=== PATIENT | female | born 1975 | race Caucasian/White ===

== ENCOUNTER 2023-11-17 15:08 | Inpatient (IN) | payer OTHER ==
[~2023-11-17] VITALS: Ht 162.6 cm; Wt 76.2 kg
[~2023-11-17 15:08] MED LIST: ASPIRIN EC81 MG PO; CRESTOR20 MG PO; ESCITALOPRAM OX10 MG PO; FIORICET 50-301 EACH PO; HYDROCHLOROTHIA25 MG PO; LEVOTHYROXINE88 MCG PO; LIDOCAINE1 EAC1 TD; NITROSTAT0.4 MG SL; PREDNISONE20 MG PO; SYNTHROID100 MCG PO; TYLENOL325 MG PO; Z.0.ALPRAZOLAM1 MG PO; Z.0.ATENOLOL25 MG PO; Z.0.METHIMAZOLE10 MG PO
[2023-11-17] MEDS ORDERED: SODIUM CHLORIDE FLUSH 10 ML SYR IV PRN (15:15)
[2023-11-17] MEDS ORDERED: KETOROLAC TROMETHAMINE 30 MG/ML VIAL IV STA (15:21)
[2023-11-17] MEDS ORDERED: FAMOTIDINE 20 MG/2 ML VIAL IV STA (15:31)
[2023-11-17 15:40] LABS: BASOPHILS # (AUTO) 0.1 (0.0-0.1); BASOPHILS % 0.7 % (0.0-1.0); EOSINOPHILS # (AUTO) 0.6 (0.0-0.4); EOSINOPHILS % 5.5 % (0.0-6.0); HEMATOCRIT 41.9 % (34.2-44.1); HEMOGLOBIN 13.8 g/dL (12.0-16.0); LYMPHOCYTES # (AUTO) 3.6 (1.0-3.2); LYMPHOCYTES % 34.4 % (18.0-39.1); MEAN CORPUSCULAR HEMOGLOBIN 32.2 pg (28-32); MEAN CORPUSCULAR HGB CONC 32.9 g/dL (31-35); MEAN CORPUSCULAR VOLUME 97.7 fL (81-99); MONOCYTES % 9.7 % (4.4-11.3); NEUTROPHILS # (AUTO) 5.2 (2.1-6.9); NEUTROPHILS % 49.5 % (38.7-80.0); PLATELET COUNT 279 x10e3/uL (140-360); RED BLOOD COUNT 4.29 x10e6/uL (3.6-5.1); RED CELL DISTRIBUTION WIDTH 13.2 % (11.7-14.4); WHITE BLOOD COUNT 10.44 x10e3/uL (4.8-10.8)
[2023-11-17 15:57] LABS: ALBUMIN 4.1 g/dL (3.5-5.0); ALBUMIN/GLOBULIN RATIO 1.1 (0.8-2.0); ANION GAP 13.7 mmol/L (8-16); BILIRUBIN,TOTAL 0.2 mg/dL (0.2-1.2); CALCIUM 9.3 mg/dL (8.4-10.2); CREATININE, SERUM 0.88 mg/dL (0.57-1.11); POTASSIUM 3.7 mmol/L (3.5-5.1); TOTAL PROTEIN 7.7 g/dL (6.5-8.1)
[2023-11-17 16:03] LABS: TROPONIN I 0.049 ng/mL (0-0.300)
[2023-11-17] MEDS ORDERED: ASPIRIN 81 MG CHEW TAB PO ONE ×2 (18:15→18:30)
[2023-11-17] MEDS ORDERED: SODIUM CHLORIDE FLUSH 10 ML SYR INJ PRN (18:30)
[2023-11-18 02:22] LABS: TROPONIN I 0.024 ng/mL (0-0.300)
[2023-11-18 05:50] LABS: BASOPHILS # (AUTO) 0.1 (0.0-0.1); BASOPHILS % 0.6 % (0.0-1.0); EOSINOPHILS # (AUTO) 0.6 (0.0-0.4); EOSINOPHILS % 6.3 % (0.0-6.0); HEMOGLOBIN 12.2 g/dL (12.0-16.0); LYMPHOCYTES # (AUTO) 3.6 (1.0-3.2); LYMPHOCYTES % 37.5 % (18.0-39.1); MEAN CORPUSCULAR HEMOGLOBIN 31.9 pg (28-32); MEAN CORPUSCULAR VOLUME 96.6 fL (81-99); MONOCYTES # (AUTO) 0.9 (0.2-0.8); MONOCYTES % 9.4 % (4.4-11.3); NEUTROPHILS # (AUTO) 4.4 (2.1-6.9); PLATELET COUNT 248 x10e3/uL (140-360); RED BLOOD COUNT 3.83 x10e6/uL (3.6-5.1); RED CELL DISTRIBUTION WIDTH 13.2 % (11.7-14.4); WHITE BLOOD COUNT 9.49 x10e3/uL (4.8-10.8)
[2023-11-18] MEDS: ASPIRIN 325 MG TAB EC PO SCH (08:53)
[2023-11-18 11:53] LABS: ALBUMIN 3.5 g/dL (3.5-5.0); ALBUMIN/GLOBULIN RATIO 1.1 (0.8-2.0); ANION GAP 10.5 mmol/L (8-16); BILIRUBIN,TOTAL 0.2 mg/dL (0.2-1.2); CALCIUM 8.9 mg/dL (8.4-10.2); CREATININE, SERUM 0.75 mg/dL (0.57-1.11); POTASSIUM 3.5 mmol/L (3.5-5.1); TOTAL PROTEIN 6.7 g/dL (6.5-8.1)
[2023-11-18 12:00] LABS: TROPONIN I 0.038 ng/mL (0-0.300)
[2023-11-18 15:47] VITALS: BP 125/65; PULSE 64; RESP 18; TEMP 97.6; O2SAT 98
[2023-11-18 15:59] VITALS: BP 125/65; PULSE 64; RESP 18; TEMP 97.6; O2SAT 98
[2023-11-18] MEDS ORDERED: NITROGLYCERIN 2% OINT 1 GM PKT TOP ONE (16:15)
[2023-11-18] MEDS: ONDANSETRON HCL INJ 2MG/ML 2ML 2 MG/ML VIAL IV PRN (16:39)
[2023-11-18] MEDS: SODIUM CHLORIDE 0.9% 1000ML 1,000 ML IV SCH (16:39)
[2023-11-18] MEDS: Morphine 4mg INJECTION 4 MG/ML INJ IV PRN ×2 (16:40→21:11)
[2023-11-18] MEDS ORDERED: melatonin PO (16:59)
[2023-11-18] MEDS ORDERED: ADVIL200 MG PO (16:59)
[2023-11-18] MEDS ORDERED: XYZAL5 MG PO (16:59)
[2023-11-18] MEDS ORDERED: [UNRECOGNIZED DRUG - OTHER] PO (16:59)
[2023-11-18] MEDS ORDERED: ACETAMINOPHEN325 M1 PO (16:59)
[2023-11-18] MEDS ORDERED: INFLUENZA VIRUS VAC SPLIT INJ 0.5 ML SYR IM SCH (17:00)
[2023-11-18 17:05] VITALS: BP 125/65; PULSE 64; RESP 18; TEMP 97.6; O2SAT 98
[2023-11-18 20:00] VITALS: BP 125/65; PULSE 64; RESP 18; TEMP 97.6; O2SAT 98
[2023-11-18 21:10] VITALS: BP 107/67; PULSE 65; RESP 18; TEMP 97.9; O2SAT 99
[2023-11-19] VITALS (18 sets, daily range): BP systolic 91–151; BP diastolic 50–101; PULSE 63–87; RESP 11–18; TEMP 97.5–98.3; O2SAT 96–100
[2023-11-19] MEDS ORDERED: ACETAMINOPHEN 325 MG TAB PO PRN
[2023-11-19] MEDS: Morphine 4mg INJECTION 4 MG/ML INJ IV PRN ×5 (01:00→20:28)
[2023-11-19 06:15] LABS: BASOPHILS % 0.3 % (0.0-1.0); EOSINOPHILS # (AUTO) 0.5 (0.0-0.4); EOSINOPHILS % 5.5 % (0.0-6.0); HEMATOCRIT 39.1 % (34.2-44.1); HEMOGLOBIN 12.8 g/dL (12.0-16.0); LYMPHOCYTES # (AUTO) 3.3 (1.0-3.2); LYMPHOCYTES % 33.8 % (18.0-39.1); MEAN CORPUSCULAR HEMOGLOBIN 31.4 pg (28-32); MEAN CORPUSCULAR HGB CONC 32.7 g/dL (31-35); MEAN CORPUSCULAR VOLUME 96.1 fL (81-99); MONOCYTES % 10.6 % (4.4-11.3); NEUTROPHILS # (AUTO) 4.8 (2.1-6.9); NEUTROPHILS % 49.5 % (38.7-80.0); PLATELET COUNT 265 x10e3/uL (140-360); RED BLOOD COUNT 4.07 x10e6/uL (3.6-5.1); WHITE BLOOD COUNT 9.72 x10e3/uL (4.8-10.8)
[2023-11-19 06:44] LABS: ALBUMIN 3.6 g/dL (3.5-5.0); ALBUMIN/GLOBULIN RATIO 1.1 (0.8-2.0); ANION GAP 11.5 mmol/L (8-16); BILIRUBIN,TOTAL 0.2 mg/dL (0.2-1.2); CALCIUM 8.5 mg/dL (8.4-10.2); CREATININE, SERUM 0.78 mg/dL (0.57-1.11); POTASSIUM 3.5 mmol/L (3.5-5.1); TOTAL PROTEIN 6.9 g/dL (6.5-8.1)
[2023-11-19 07:09] LABS: TROPONIN I 0.011 ng/mL (0-0.300)
[2023-11-19] MEDS: ASPIRIN 325 MG TAB EC PO SCH (08:17)
[2023-11-19] MEDS: SODIUM CHLORIDE 0.9% 1000ML 1,000 ML IV SCH (08:19)
[2023-11-19] MEDS ORDERED: HEPARIN SOD (PORCINE) 1000 UNIT/ML 30ML ONE (11:40)
[2023-11-19] MEDS ORDERED: LIDOCAINE HCL 2% LOCAL 20 ML VIAL ONE (11:40)
[2023-11-19] MEDS ORDERED: IOPAMIDOL 370 MG/ML 100 ML INFUS..BTL INJ ONE (11:41)
[2023-11-19] MEDS ORDERED: HEPARIN SOD/SOD CHLORIDE 2,000 ML ONE (11:41)
[2023-11-19] MEDS ORDERED: NITROGLYCERIN/D5W 200 MCG/ML 250 ML ONE (11:41)
[2023-11-19] MEDS ORDERED: SODIUM CHLORIDE 0.9% 1000ML 1,000 ML ONE (11:41)
[2023-11-19] MEDS ORDERED: VERAPAMIL HCL 2.5 MG/ML 2 ML VIAL ONE (11:42)
[2023-11-19] MEDS ORDERED: FENTANYL CITRATE/PF 100MCG/2 ML INJ ONE (11:42)
[2023-11-19] MEDS ORDERED: MIDAZOLAM HCL 2 MG/2 ML VIAL ONE (11:42)
[2023-11-19] MEDS ORDERED: ASPIRIN 325 MG TAB ONE (13:00)
[2023-11-19] MEDS ORDERED: CLOPIDOGREL BISULFATE 75 MG TAB ONE ×2 (13:00→13:03)
[2023-11-19] MEDS ORDERED: Morphine 4mg INJECTION 4 MG/ML INJ ONE (13:19)
[2023-11-19] MEDS ORDERED: ACETAMINOPHEN 325 MG TAB ONE (14:17)
[2023-11-19] MEDS ORDERED: ONDANSETRON HCL INJ 2MG/ML 2ML 2 MG/ML VIAL ONE (15:08)
[2023-11-19] MEDS: ONDANSETRON HCL INJ 2MG/ML 2ML 2 MG/ML VIAL IV PRN ×2 (15:10→20:28)
[2023-11-19] MEDS ORDERED: Morphine 2mg Syringe 2 MG/ML SYR IV ONE (16:15)
[2023-11-19] MEDS ORDERED: METOCLOPRAMIDE HCL 10 MG/2ML VIAL IV ONE (16:15)
[2023-11-20 00:31] VITALS: BP 101/79; PULSE 76; RESP 18; TEMP 97.9; O2SAT 98
[2023-11-20 04:00] VITALS: BP 121/80; PULSE 78; RESP 18; TEMP 98.1; O2SAT 98
[2023-11-20] MEDS: SODIUM CHLORIDE 0.9% 1000ML 1,000 ML IV SCH ×2 (05:21→05:28)
[2023-11-20] MEDS ORDERED: LEVOTHYROXINE SODIUM 100 MCG TAB PO SCH (06:00)
[2023-11-20] MEDS: ASPIRIN 325 MG TAB EC PO SCH (08:04)
[2023-11-20 08:26] VITALS: BP 94/58; PULSE 68; RESP 18; TEMP 98.2; O2SAT 100
[2023-11-20 08:27] VITALS: BP 94/58; PULSE 68; RESP 18; TEMP 98.2; O2SAT 100
[2023-11-20] MEDS ORDERED: CLOPIDOGREL BISULFATE 75 MG TAB PO SCH (10:00)
[2023-11-20 12:06] VITALS: BP 99/54; PULSE 68; RESP 18; TEMP 98.7; O2SAT 100
[2023-11-20] MEDS ORDERED: ATORVASTATIN CA40 MG PO (16:42)
[2023-11-20] MEDS ORDERED: ONDANSETRON ODT4 MG PO (16:42)
[2023-11-20] MEDS ORDERED: PLAVIX75 MG PO (16:42)
[2023-11-20] MEDS ORDERED: ACETAMINOPHEN325 M1 PO (16:42)
[2023-11-20] MEDS ORDERED: ATORVASTATIN 40 MG TAB PO SCH (21:00)
== END 2023-11-20 17:07 | disposition home or self-care (01) | DRG 322 ==
LOC: ER 15:19 → ERHOLD 18:25 → MED/SURG2 11-18 15:30 → OBSVTOIN 11-19 21:41
PROVIDERS: ADMIT Internal Medicine; ATTEND Internal Medicine
PROC: 027035Z Dilation of Coronary Artery, One Artery with Two Drug-eluting Intraluminal Devices, Percutaneous Approach (ICD-10-PCS; principal; 2023-11-19)
PROC: 4A023N7 Measurement of Cardiac Sampling and Pressure, Left Heart, Percutaneous Approach (ICD-10-PCS; 2023-11-19)
PROC: B2111ZZ Fluoroscopy of Multiple Coronary Arteries using Low Osmolar Contrast (ICD-10-PCS; 2023-11-19)
DX: I25.110 Atherosclerotic heart disease of native coronary artery with unstable angina pectoris (principal); R07.89 Other chest pain; I10 Essential (primary) hypertension; E78.5 Hyperlipidemia, unspecified; F41.9 Anxiety disorder, unspecified; E03.9 Hypothyroidism, unspecified; Z79.899 Other long term (current) drug therapy; Z79.890 Hormone replacement therapy
CPT/HCPCS: 36415; 71045; 76937; 80053; 82550; 84484; 85025; 92920; 92928; 93005; 93458; 94760; 99152; 99153; 99284; C1725; C1874; C1887; G0378; J1644; J1885; J2001; J2250; J2270; J2405; J2765; J7030; Q9967